=== PATIENT | male | born 1950 | race Caucasian/White ===

== ENCOUNTER 2022-07-13 12:07 | Emergency (ER) | payer MEDICARE, BC, SELFPAY ==
[2022-07-13 12:18] VITALS: BP 217/96; PULSE 73; RESP 16; TEMP 36.7; O2SAT 97; BMI 23.7
--- NOTE | 2022-07-13 12:31 | ED_ITS ---
HPI - General Adult General Date Seen: 07/13/22 Chief complaint: Urogenital Problems, Male Stated complaint: Needs catheter put in Time Seen by Provider: 07/13/22 12:09 Source: patient Mode of arrival: ambulatory Limitations: no limitations History of Present Illness HPI narrative: Patient is a 71-year-old male who presents for evaluation of urinary retention. He tells me that he has had this a couple of times in the past, once about 5 years ago once just right before COVID. He has seen Urology and has been told his prostate is ?immense?, and he takes a medication of which he does not remember the name, to help shrink his prostate. He denies dysuria or hematuria, fevers, flank pain, vomiting. He does have abdominal pain which feels related to his inability to void. He says the last time he had good urine output was last evening about 8:00 p.m., presents to the ER at noon the following day. He says he has only been able to have just a few drops come out since then. Related Data Home Medications Medication Instructions Recorded Confirmed prednisone 1 mg tablet mg PO 07/13/22 prednisone 5 mg tablet mg PO 07/13/22 Previous Rx's Medication Instructions Recorded tamsulosin 0.4 mg capsule 0.4 mg PO QHS #30 caps 07/13/22 tamsulosin 0.4 mg capsule (Flomax) 0.4 mg PO QHS #30 caps 07/13/22 Allergies Allergy/AdvReac Type Severity Reaction Status Date / Time No Known Allergies Allergy Unknown Verified 10/26/21 09:34 Review of Systems Status of ROS: Reports: 6 or more systems reviewed and unremarkable except as noted in History and below PFSH PFSH Surgical History History of colonoscopy with polypectomy ?Z98.890 - Other specified postprocedural states (ICD-10) ?Z86.010 - Personal history of colonic polyps (ICD-10) Family History Father Temporal arteritis Social History Narrative: Does not use illicit drugs Nonsmoker Rarely consumes alcohol Smoking Status: Unknown if ever smoked Exam Narrative: Exam Narrative: Vital signs reviewed, hypertensive. In general, an alert, nontoxic male. He is pacing the room, holding his stomach. Head: Normocephalic, atraumatic. Abdomen: Soft, distended with suprapubic tenderness. Skin: Warm and dry. Neurologic: He is alert, conversant, speech fluent, gait stable. Affect: Normal. Const: Vital Signs, click to edit/add: Vital Signs - 24 hr 07/13/22 12:18 07/13/22 13:08 Temperature 98.1 F Pulse Rate [Pulse Oximeter] 73 Respiratory Rate 16 Blood Pressure [Ri ght Upper Arm] 217/96 H 147/90 H Pulse Oximetry 97 Oxygen Delivery Me thod Room Air Documenting provider has reviewed patient's vital signs: yes Course Course Hospital Course: Patient with a history of benign prostatic hypertrophy presents with urinary retention, likely related to the same. Will check a UA, but he does not describe symptoms of UTI and my suspicion of that is rather low. Certainly does not show any signs of more systemic infection and I do not think other labs are necessary today. Will place a Sandy, recommend urology follow-up for removal of Sandy and discussion of whether further therapy is recommended at this time. Blood pressure is elevated, will recheck after Sandy catheter placement. Suspect that some of this is related to discomfort. He feels much better after catheter insertion. Blood pressure is 147/90 on recheck. Return for catheter problems, otherwise plan as above. Patient did recall that he is supposed to be on Flomax, says he has been out of it for the past couple of weeks. I will go ahead and prescribe that for him so that he can start that again while he awaits urology follow-up. UA negative today. Vital Signs Vital signs: Initial Vital Signs Temperature 98.1 F 07/13/22 12:18 Temperature Source Temporal Artery Scan 07/13/22 12:18 Pulse Rate 73 07/13/22 12:18 Respiratory Rate 16 07/13/22 12:18 Blood Pressure 217/96 H 07/13/22 12:18 Blood Pressure Mean 136 07/13/22 12:18 Pulse Oximetry 97 07/13/22 12:18 Oxygen Delivery Method Room Air 07/13/22 12:18 Vital Signs Temperature 98.1 F 07/13/22 12:18 Pulse Rate 73 07/13/22 12:18 Respiratory Rate 16 07/13/22 12:18 Blood Pressure 217/96 H 07/13/22 12:18 Pulse Oximetry 97 07/13/22 12:18 Oxygen Delivery Method Room Air 07/13/22 12:18 Temperature 98.1 F 07/13/22 12:18 Pulse Rate 73 07/13/22 12:18 Respiratory Rate 16 07/13/22 12:18 Blood Pressure 147/90 H 07/13/22 13:08 Pulse Oximetry 97 07/13/22 12:18 Oxygen Delivery Method Room Air 07/13/22 12:18 Medical Decision Making Lab Data Labs: Lab Results 07/13/22 Range/Units 12:31 Urine Color Yellow (Yellow) Urine Appearance Clear (Clear) Urine pH 6.5 (5.0-8.5) Ur Specific [place] 1.025 (1.000-1.030) Urine Protein Negative (Negative) Urine Glucose (UA) Negative (Negative) Urine Ketones Negative (Negative) Urine Blood Negative (Negative) Urine Nitrite Negative (Negative) Urine Bilirubin Negative (Negative) Urine Urobilinogen 0.2 (0.2-1.0) Ur Leukocyte Esterase Negative (Negative) Urine RBC 0-2 (0-2) Urine WBC 0-2 (0-5) Ur Squamous Epith Cells None (None-Few) Urine Bacteria None (None) Discharge Plan Discharge Clinical Impression: Benign prostatic hyperplasia, Acute urinary retention Patient Disposition: Home, Self-Care Condition: Improved Instructions: Urinary Retention in Men (ED), Sandy Catheter Placement and Care (ED) Additional Instructions: I would recommend that you call on Friday and make a follow-up appointment with Urology for catheter removal and also to discuss if they would recommend anything further for management of your prostatic hypertrophy. If you have problems with the catheter in the meantime, check with your primary clinic or return to the ER. Prescriptions: New tamsulosin [Flomax] 0.4 mg capsule 0.4 mg PO QHS Qty: 30 2RF tamsulosin 0.4 mg capsule 0.4 mg PO QHS Qty: 30 2RF No Action prednisone 5 mg tablet PO prednisone 1 mg tablet PO Follow Up/Referrals: Yon Hardy PA-C [Primary Care Provider] - Stand Alone Forms: [facility] Info Instructions
[2022-07-13 13:08] VITALS: BP 147/90
[2022-07-13 13:10] LABS: Appearance Urine Clear (Clear); Bilirubin Urine Negative (Negative); Blood Urine Negative (Negative); Color Urine Yellow (Yellow); Glucose Urine Negative (Negative); Ketones Urine Negative (Negative); Leukocyte Esterase Urine Negative (Negative); Nitrite Urine Negative (Negative); Protein Urine Negative (Negative); Specific Gravity Urine 1.025 (1.000-1.030); Urobilinogen Urine 0.2 (0.2-1.0); pH Urine 6.5 (5.0-8.5)
[2022-07-13 13:22] LABS: RBC Urine 0-2 (0-2); WBC Urine 0-2 (0-5)
--- NOTE | 2022-07-13 13:42 | ED.NURSE ---
Catheter changed to leg bag and teaching provided.
== END 2022-07-13 13:44 | disposition home or self-care (01) ==
PROVIDERS: Emergency Provider Emergency Medicine; PCP Physician Assistant Medical
DX: N40.1 Benign prostatic hyperplasia with lower urinary tract symptoms (principal)
CPT/HCPCS: 51702; 81001; 99283; 99284

== ENCOUNTER 2022-07-13 18:03 | Emergency (ER) | payer MEDICARE, BC, SELFPAY ==
--- NOTE | 2022-07-13 18:22 | ED.NURSE ---
Patient returned to ED with reports of leaking around catheter and no output to leg bag. Catheter balloon was deflated and catheter adjusted than reinserted. Catheter irrigated with irrigation solution and this did drain to bag when reattached with small blood clot noted. Patient rested in ED and urine did drain and no pain was reported. He was set to leave when he noted additional discharge when dressing. Will continue to monitor for a brief while.
== END 2022-07-13 19:11 | disposition left against medical advice (07) ==
PROVIDERS: PCP Physician Assistant Medical
DX: Z53.21 Procedure and treatment not carried out due to patient leaving prior to being seen by health care provider (principal)

== ENCOUNTER 2022-07-30 09:14 | Emergency (ER) | payer MEDICARE, BC, SELFPAY ==
[2022-07-30 09:26] VITALS: BP 199/90; PULSE 86; RESP 18; TEMP 36.6; O2SAT 98; BMI 23.7
--- NOTE | 2022-07-30 10:01 | ED_ITS ---
HPI - Male Genitourinary General Date Seen: 07/30/22 Chief complaint: Urogenital Problems, Male Stated complaint: Needs catheter placed Time Seen by Provider: 07/30/22 09:37 Source: patient Mode of arrival: ambulatory Limitations: no limitations History of Present Illness HPI Narrative: 71-year-old gentleman presents here for evaluation of not being able to pee, history of urinary retention had recently had a catheter placed, is on Flomax already in tells me is prostate is huge. He notes that he has had no fevers chills or sweats, no dysuria frequency associated with this he has no nausea vomiting. Just thinks he might need a catheter. Unable to pee for the last 12- 24 hours. Related Data Home Medications Medication Instructions Recorded Confirmed prednisone 1 mg tablet mg PO 07/13/22 prednisone 5 mg tablet mg PO 07/13/22 Previous Rx's Medication Instructions Recorded tamsulosin 0.4 mg capsule 0.4 mg PO QHS #30 caps 07/13/22 tamsulosin 0.4 mg capsule (Flomax) 0.4 mg PO QHS #30 caps 07/13/22 Allergies Allergy/AdvReac Type Severity Reaction Status Date / Time No Known Allergies Allergy Unknown Verified 10/26/21 09:34 Review of Systems Status of ROS: Reports: 10 or more systems reviewed and unremarkable except as noted in History and below PFSH PFS Surgical History History of colonoscopy with polypectomy ?Z98.890 - Other specified postprocedural states (ICD-10) ?Z86.010 - Personal history of colonic polyps (ICD-10) Family History Father Temporal arteritis Social History Narrative: Does not use illicit drugs Nonsmoker Rarely consumes alcohol Smoking Status: Unknown if ever smoked Exam Narrative: Exam Narrative: Patient is seen in room 3 he is in no apparent distress, his abdomen is soft, he percusses the bladder that is probably up to his umbilicus. He has a very large right-sided inguinal hernia, down into his scrotum, tenderness with this. Const: Vital Signs, click to edit/add: Vital Signs - 24 hr 07/30/22 09:26 Temperature 97.8 F Pulse Rate [Left P ulse Oximeter] 86 Respiratory Rate 18 Blood Pressure [Le ft Upper Arm] 199/90 H Pulse Oximetry 98 Oxygen Delivery Me thod Room Air Documenting provider has reviewed patient's vital signs: yes Course Course Hospital Course: Patient has over 700 mL of urine out, now feels so much better, I think we can let him go home, we will do a urine to ensure that he does not have infection, but I think in the end this 1 change the management he will need to follow-up with urology is a number of these re issues recently, would benefit from likely a TURP, I also suggest follow-up with the surgery, to consideration of repair of his large inguinal hernia. Patient is agreeable to this. Vital Signs Vital signs: Initial Vital Signs Temperature 97.8 F 07/30/22 09:26 Temperature Source Temporal Artery Scan 07/30/22 09:26 Pulse Rate 86 07/30/22 09:26 Pulse Rhythm Regular 07/30/22 09:26 Pulse Strength 3+ Normal 07/30/22 09:26 Respiratory Rate 18 07/30/22 09:26 Blood Pressure 199/90 H 07/30/22 09:26 Blood Pressure Mean 126 H 07/30/22 09:26 Blood Pressure Position Sitting 07/30/22 09:26 Pulse Oximetry 98 07/30/22 09:26 Oxygen Delivery Method Room Air 07/30/22 09:26 Vital Signs Temperature 97.8 F 07/30/22 09:26 Pulse Rate 86 07/30/22 09:26 Respiratory Rate 18 07/30/22 09:26 Blood Pressure 199/90 H 07/30/22 09:26 Pulse Oximetry 98 07/30/22 09:26 Oxygen Delivery Method Room Air 07/30/22 09:26 Temperature 97.8 F 07/30/22 09:26 Pulse Rate 86 07/30/22 09:26 Respiratory Rate 18 07/30/22 09:26 Blood Pressure 199/90 H 07/30/22 09:26 Pulse Oximetry 98 07/30/22 09:26 Oxygen Delivery Method Room Air 07/30/22 09:26 MDM - Male Genitourinary MDM Narrative Medical decision making narrative: I discussed with him that we will get a catheter placed, we will drain his bladder but he should consider having his hernia repaired, as it will get to large in a will be unable to repair it. This often happens, any tells me he is a charles and really does does not have time to be off. Medical Records Attestation: I reviewed the patient's medical records. Discharge Plan Discharge Clinical Impression: Benign prostatic hyperplasia, Acute retention of urine Patient Disposition: Home, Self-Care Condition: Improved Instructions: Urinary Retention in Men (ED), Enlarged Prostate (BPH) (ED), Sandy Catheter Placement and Care (ED), Sandy Catheter Removal (DC), How to Batool nge a Catheter Drainage Bag (DC) Additional Instructions: Home rest follow-up with primary care or Urology for catheter removal in 3-5 days, also suggest consideration of repair of urine coronal hernia, and possibly a TURP to help with the urine issues. We will grow your urine to see if there is infection and call you in but you on antibiotics as needed, return her bleeding, fevers chills, nausea vomiting or other issue. Prescriptions: No Action prednisone 5 mg tablet PO prednisone 1 mg tablet PO tamsulosin [Flomax] 0.4 mg capsule 0.4 mg PO QHS Qty: 30 2RF tamsulosin 0.4 mg capsule 0.4 mg PO QHS Qty: 30 2RF Follow Up/Referrals: Yon Hardy PA-C [Primary Care Provider] - Stand Alone [facility]
[2022-07-30] MEDS: lidocaine HCL 2 % JELLY (TOP) STERILE 6 ML UR (10:03)
--- NOTE | 2022-07-30 10:26 | ED.NURSE ---
Bladder scanned for 500cc. Patient unable to void. 16 fr de [place] rosa inserted post urojet. Easily placed. No blood or trauma. Had 500cc out immediately. Leg bag applied. Education on leg bag and night bag given.
[2022-07-30 10:29] LABS: Appearance Urine Clear (Clear); Bilirubin Urine Negative (Negative); Blood Urine Trace-intact (Negative); Color Urine Yellow (Yellow); Glucose Urine Negative (Negative); Ketones Urine Negative (Negative); Leukocyte Esterase Urine Negative (Negative); Nitrite Urine Negative (Negative); Protein Urine Negative (Negative); Specific Gravity Urine 1.025 (1.000-1.030); Urobilinogen Urine 0.2 (0.2-1.0)
[2022-07-30 10:45] LABS: RBC Urine 0-2 (0-2); WBC Urine 0-2 (0-5)
== END 2022-07-30 10:43 | disposition home or self-care (01) ==
PROVIDERS: Emergency Provider Family Medicine; PCP Physician Assistant Medical
DX: N40.1 Benign prostatic hyperplasia with lower urinary tract symptoms (principal); R33.8 Other retention of urine
CPT/HCPCS: 51702; 81001; 99283

== ENCOUNTER 2022-08-05 13:18 | Emergency (ER) | payer MEDICARE, BC, SELFPAY ==
[2022-08-05 13:31] VITALS: BP 166/85; PULSE 70; RESP 16; TEMP 36.7; O2SAT 95; BMI 23.7
--- NOTE | 2022-08-05 15:28 | ED.NURSE ---
Balloon deflated and catheter removed without issue.
--- NOTE | 2022-08-05 15:28 | ED.MALEGU ---
HPI - Male Genitourinary General Time Seen by Provider: 15:28 Date Seen: 08/05/22 Chief complaint: Urogenital Problems, Male Stated complaint: Wants Cath Removed Time Seen by Provider: 08/05/22 15:28 Source: patient, RN notes reviewed and old records reviewed Mode of arrival: ambulatory Limitations: no limitations History of Present Illness HPI Narrative: Patient is a very pleasant 72-year-old gentleman with a history of large prostate, polymyalgia who comes to the [facility] with request to remove the catheter. Patient had catheter placed approximately 7 days ago after being unable to urinate for 12-24 hours. It was noted that he had greater than 700 mils drained at that time. He had already been placed on Flomax. He was instructed to go to the clinic today for catheter removal but once he arrived there they told him that he would they were unable to do that. He was thus that to the emergency room. Thompson notes no fever or other difficulties. He is very happy to have the catheter removed. The catheter was removed prior to me seeing the patient. Related Data Home Medications Medication Instructions Recorded Confirmed prednisone 1 mg tablet mg PO 07/13/22 prednisone 5 mg tablet mg PO 07/13/22 Previous Rx's Medication Instructions Recorded tamsulosin 0.4 mg capsule 0.4 mg PO QHS #30 caps 07/13/22 tamsulosin 0.4 mg capsule (Flomax) 0.4 mg PO QHS #30 caps 07/13/22 Allergies Allergy/AdvReac Type Severity Reaction Status Date / Time No Known Allergies Allergy Unknown Verified 10/26/21 09:34 PFSH PFS Surgical History History of colonoscopy with polypectomy ?Z98.890 - Other specified postprocedural states (ICD-10) ?Z86.010 - Personal history of colonic polyps (ICD-10) Family History Father Temporal arteritis Social History Narrative: Does not use illicit drugs Nonsmoker Rarely consumes alcohol Smoking Status: Unknown if ever smoked How often do you have a drink containing alcohol: never AUDIT-C Alcohol total score: 0 Non-prescribed substance use: denies use Exam Narrative: Exam Narrative: Patient is alert and oriented nontoxic in appearance no respiratory distress Const: Vital Signs, click to edit/add: Vital Signs - 24 hr 08/05/22 13:31 Temperature 98.1 F Pulse Rate [Pulse Oximeter] 70 Respiratory Rate 16 Blood Pressure [Ri ght Upper Arm] 166/85 H Pulse Oximetry 95 Oxygen Delivery Me thod Room Air Documenting provider has reviewed patient's vital signs: yes Course Vital Signs Vital signs: Initial Vital Signs Temperature 98.1 F 08/05/22 13:31 Temperature Source Temporal Artery Scan 08/05/22 13:31 Pulse Rate 70 08/05/22 13:31 Respiratory Rate 16 08/05/22 13:31 Blood Pressure 166/85 H 08/05/22 13:31 Blood Pressure Mean 112 H 08/05/22 13:31 Pulse Oximetry 95 08/05/22 13:31 Oxygen Delivery Method Room Air 08/05/22 13:31 Vital Signs Temperature 98.1 F 08/05/22 13:31 Pulse Rate 70 08/05/22 13:31 Respiratory Rate 16 08/05/22 13:31 Blood Pressure 166/85 H 08/05/22 13:31 Pulse Oximetry 95 08/05/22 13:31 Oxygen Delivery Method Room Air 08/05/22 13:31 Temperature 98.1 F 08/05/22 13:31 Pulse Rate 70 08/05/22 13:31 Respiratory Rate 16 08/05/22 13:31 Blood Pressure 166/85 H 08/05/22 13:31 Pulse Oximetry 95 08/05/22 13:31 Oxygen Delivery Method Room Air 08/05/22 13:31 MDM - Male Genitourinary MDM Narrative Medical decision making narrative: 1. Catheter removal-patient had catheter removed prior to my entering room. I do have worries regarding his hyperplasia of the prostate and that removing the catheter will only resulted in urinary retention overnight. However, he had been instructed to go to the clinic today to have this removed. He is otherwise feeling well with no fever or chills. Recommend returning to the ED if he has inability to urinate. He agrees to do so. He will keep his follow-up appointment with Urology and continue on his Flomax. 2. Disposition-home at this time. Dictation done with voice recognition, and as a result, wrong word or [id number] substitutions may have occurred.? There may be errors in the script that have gone undetected.? Please consider this when interpreting information found in this chart. Medical Records Attestation: I reviewed the patient's medical records. Discharge Plan Discharge Clinical Impression: Encounter for Sandy catheter removal Patient Disposition: Home, Self-Care Condition: Improved Additional Instructions: Return to the Emergency Room for inability to urinate. Follow-up with urology as scheduled. Prescriptions: No Action prednisone 5 mg tablet PO prednisone 1 mg tablet PO tamsulosin [Flomax] 0.4 mg capsule 0.4 mg PO QHS Qty: 30 2RF tamsulosin 0.4 mg capsule 0.4 mg PO QHS Qty: 30 2RF Follow Up/Referrals: Yon Hardy PA-C [Primary Care Provider] - Stand Alone Forms: [facility] Info Instructions
== END 2022-08-05 15:45 | disposition home or self-care (01) ==
LOC: ED 15:41
PROVIDERS: Emergency Provider Family Medicine; PCP Physician Assistant Medical
DX: Z46.6 Encounter for fitting and adjustment of urinary device (principal)
CPT/HCPCS: 99282; 99283

== ENCOUNTER 2022-10-19 07:32 | Emergency (ER) | payer MEDICARE, BC, SELFPAY ==
[2022-10-19 07:39] VITALS: BP 153/75; PULSE 76; RESP 18; TEMP 36.8; O2SAT 97; BMI 24.4
--- NOTE | 2022-10-19 08:11 | ED_ITS ---
HPI - Male Genitourinary General Time Seen by Provider: 08:11 Date Seen: 10/19/22 Chief complaint: Urogenital Problems, Male Stated complaint: Possibly needs a catheter Time Seen by Provider: 10/19/22 08:02 Source: patient and RN notes reviewed Mode of arrival: ambulatory Limitations: no limitations History of Present Illness HPI Narrative: Patient is coming in with difficulty urinating, only able to go small amounts overnight, starting to feel some pressure. He states this would be his 5th time needing to have a catheter placed. He states he has urologist, urologist describes his prostate as immense. He is on Flomax. Denies any nausea vomiting, no fevers or chills, no infective urinary symptoms. He has not had surgery. 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 Related Data Home Medications Medication Instructions Recorded Confirmed prednisone 1 mg tablet mg PO 07/13/22 prednisone 5 mg tablet mg PO 07/13/22 Previous Rx's Medication Instructions Recorded tamsulosin 0.4 mg capsule 0.4 mg PO QHS #30 caps 07/13/22 tamsulosin 0.4 mg capsule (Flomax) 0.4 mg PO QHS #30 caps 07/13/22 Allergies Allergy/AdvReac Type Severity Reaction Status Date / Time No Known Allergies Allergy Unknown Verified 10/26/21 09:34 Review of Systems Narrative: As per HPI. PFSH PFSH Surgical History History of colonoscopy with polypectomy ?Z98.890 - Other specified postprocedural states (ICD-10) ?Z86.010 - Personal history of colonic polyps (ICD-10) Family History Father Temporal arteritis Social History Narrative: Does not use illicit drugs Nonsmoker Rarely consumes alcohol Smoking Status: Unknown if ever smoked How often do you have a drink containing alcohol: never AUDIT-C Alcohol total score: 0 Non-prescribed substance use: denies use Exam Const: Vital Signs, click to edit/add: Vital Signs - 24 hr 10/19/22 07:39 Temperature 98.2 F Pulse Rate [Right Pulse Oximeter] 76 Respiratory Rate 18 Blood Pressure [Ri ght Upper Arm] 153/75 H Pulse Oximetry 97 Oxygen Delivery Me thod Room Air 72-year-old male that is alert, interact oscar, no apparent distress, very pleasant. Lungs are clear, able to speak in complete sentences, no wheezing or crackles. CV regular rate and rhythm, no murmur, normal S1 and S2. Abdomen is soft, nondistended. Some mild suprapubic pressure but certainly no rebound or guarding. Do feel that bladder is distended on my exam. Has a right inguinal hernia that is not tender on palpation. Bladder scan done and is at 519 mL. Documenting provider has reviewed patient's vital signs: yes Course Course Hospital Course: Reviewed with patient that we will use a Uro jet, place a catheter and see how much drains. He is aware that it is likely the catheter will need to stay in and he can follow up with his urologist that he has next week. Reevaluation(s) Time of Reevaluation #1: 09:26 Reevaluation #1: Patient had 450 mL out but could not urinate on his own after multiple attempts since this a.m.. Thus, decision to leave Sandy catheter was made. He has an established relationship with a urologist, will contact them this next week. Vital Signs Vital signs: Initial Vital Signs Temperature 98.2 F 10/19/22 07:39 Temperature Source Temporal Artery Scan 10/19/22 07:39 Pulse Rate 76 10/19/22 07:39 Respiratory Rate 18 10/19/22 07:39 Blood Pressure 153/75 H 10/19/22 07:39 Blood Pressure Mean 101 10/19/22 07:39 Blood Pressure Position Sitting 10/19/22 07:39 Pulse Oximetry 97 10/19/22 07:39 Oxygen Delivery Method Room Air 10/19/22 07:39 Vital Signs Temperature 98.2 F 10/19/22 07:39 Pulse Rate 76 10/19/22 07:39 Respiratory Rate 18 10/19/22 07:39 Blood Pressure 153/75 H 10/19/22 07:39 Pulse Oximetry 97 10/19/22 07:39 Oxygen Delivery Method Room Air 10/19/22 07:39 Temperature 98.2 F 10/19/22 07:39 Pulse Rate 76 10/19/22 07:39 Respiratory Rate 18 10/19/22 07:39 Blood Pressure 153/75 H 10/19/22 07:39 Pulse Oximetry 97 10/19/22 07:39 Oxygen Delivery Method Room Air 10/19/22 07:39 MDM - Male Genitourinary Lab Data Attestation: I reviewed the patient's lab results. Labs: Lab Results 10/19/22 Range/Units 08:45 Urine Color Yellow (Yellow) Urine Appearance Clear (Clear) Urine pH 6.5 (5.0-8.5) Ur Specific [place] >= 1.030 (1.000-1.030) Urine Protein Negative (Negative) Urine Glucose (UA) Negative (Negative) Urine Ketones Negative (Negative) Urine Blood 1+ A (Negative) Urine Nitrite Negative (Negative) Urine Bilirubin Negative (Negative) Urine Urobilinogen 0.2 (0.2-1.0) Ur Leukocyte Esterase Negative (Negative) Urine RBC 5-10 A (0-2) Urine WBC 0-2 (0-5) Ur Squamous Epith Cells Few (None-Few) Urine Bacteria Few A (None) Critical Care Time Critical Care Time Critical Care Time: No Discharge Plan Discharge Clinical Impression: Acute urinary retention Patient Disposition: Home, Self-Care Condition: Stable Instructions: Urinary Retention in Men (ED), Sandy Catheter Placement and Care (ED) Additional Instructions: Contact your urologist as soon as possible next week for further care of this issue an your Sandy catheter. If you are not draining urine from her Sandy catheter, it becomes obstructed, do need to be re-evaluated. Activity Level: Activity as Tolerated Prescriptions: No Action prednisone 5 mg tablet PO prednisone 1 mg tablet PO tamsulosin [Flomax] 0.4 mg capsule 0.4 mg PO QHS Qty: 30 2RF tamsulosin 0.4 mg capsule 0.4 mg PO QHS Qty: 30 2RF Follow Up/Referrals: Yon Hardy PA-C [Primary Care Provider] - Stand Alone [facility] Info Instructions
[2022-10-19] MEDS: lidocaine HCL 2 % JELLY (TOP) STERILE 6 ML UR (08:36)
[2022-10-19 08:58] LABS: Appearance Urine Clear (Clear); Bilirubin Urine Negative (Negative); Blood Urine 1+ (Negative); Color Urine Yellow (Yellow); Glucose Urine Negative (Negative); Ketones Urine Negative (Negative); Leukocyte Esterase Urine Negative (Negative); Nitrite Urine Negative (Negative); Protein Urine Negative (Negative); Specific Gravity Urine >= 1.030 (1.000-1.030); Urobilinogen Urine 0.2 (0.2-1.0); pH Urine 6.5 (5.0-8.5)
[2022-10-19 09:11] LABS: Bacteria Urine Few; WBC Urine 0-2 (0-5)
[2022-10-19 09:12] LABS: Squamous Epithelial Cell Urine Few (None-Few)
== END 2022-10-19 09:35 | disposition home or self-care (01) ==
LOC: ED 08:35
PROVIDERS: Emergency Provider Family Medicine; PCP Physician Assistant Medical
DX: R33.9 Retention of urine, unspecified (principal)
CPT/HCPCS: 51702; 81001; 87086; 99283